=== PATIENT | female | born 2000 | race Caucasian/White ===

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

== ENCOUNTER 2021-05-13 08:46 | Emergency (ER) | payer BC ==
[~2021-05-13] VITALS: Ht 165.1 cm; Wt 72.6 kg
[~2021-05-13 08:46] MED LIST changes: +AUGMENTIN 875875 MG PO; +DIFLUCAN150 MG PO; +LO LOESTRIN FE1 EACH PO; +PROVENTIL HFA6.7 GM INH
[2021-05-13] MEDS ORDERED: CYCLOBENZAPRINE10 MG PO (09:31)
[2021-05-13] MEDS ORDERED: TYLENOL325 M1 PO (09:31)
[2021-05-13] MEDS ORDERED: VOLTAREN ARTHRI20 GM T (09:31)
[2021-05-13] MEDS ORDERED: NAPROXEN250 MG PO (09:31)
[2021-05-13 12:01] LABS: BILIRUBIN Negative (Negative); BLOOD Negative (Negative); CLARITY Cloudy (Clear); COLOR Yellow (Yellow); GLUCOSE Negative (Negative); KETONE Trace (Negative); LEUKO ESTERASE 1+ (Negative); NITRITE Negative (Negative); PH 5.5 (4.5-8.0); SPECIFIC GRAVITY 1.025 (1.001-1.030)
[2021-05-13 12:14] LABS: EPITHELIAL CELLS 21-30
[2021-05-13 12:15] LABS: BACTERIA 3+
== END 2021-05-13 12:59 | disposition home or self-care (01) ==
LOC: ED 08:46
PROVIDERS: Emergency Medicine
DX: M54.41 Lumbago with sciatica, right side (principal); Z88.0 Allergy status to penicillin; Z88.1 Allergy status to other antibiotic agents; Z91.040 Latex allergy status; Z79.899 Other long term (current) drug therapy